=== PATIENT | male | born 1970 | race African-American/Black ===

== ENCOUNTER 2019-08-02 02:21 | Emergency (ER) | payer OTHER ==
[~2019-08-02] VITALS: Ht 167.6 cm; Wt 65.8 kg
--- NOTE | 2019-08-02 02:36 | Emergency Room Report ---
History of Present Illness General Chief Complaint: Chest Pain Source: Patient Present Illness HPI Patient is a 49-year-old male who presented after increased chest discomfort. Patient reports having some indigestion-like sensation after eating at [employer]. Patient reportedly had a recent fall. He reports having prior history of hypertension which medication controlled as well as high cholesterol. He denies any prior cardiac history. Patient had not been vomiting. He denies any current pain. He states this is relieved after taking nitroglycerin and aspirin with EMS. He denies any fever. He denies being a smoker Allergies: Coded Allergies: No Known Allergies (Unverified , 08/02/19) Patient History Past Medical History: see triage record Reviewed Nursing Documentation: PMH: Agreed; PSxH: Agreed Nursing Documentation-PMH Past Medical History: No Stated History Review of Systems All Other Systems: negative except mentioned in HPI Physical Exam Vital Signs Date Time Temp Pulse Resp B/P (MAP) Pulse Ox O2 Delivery O2 Flow Rate FiO2 08/02/19 02:22 98.4 64 16 108/68 (81) 97 Room Air Sp02 EP Interpretation: reviewed, normal General Appearance: normal inspection, well appearing, no apparent distress, alert, GCS 15 Head: atraumatic ENT: normal ENT inspection, hearing grossly normal, normal voice Neck: normal inspection, full range of motion, supple, no bony tend Respiratory: normal inspection, lungs clear, normal breath sounds, no respiratory distress, no retraction, no wheezing Cardiovascular #1: regular rate, rhythm, no edema Gastrointestinal: normal inspection, normal bowel sounds, non tender, soft, no guarding, no hernia Genitourinary: no CVA tenderness Musculoskeletal: normal inspection, back normal, normal range of motion Neurologic: normal inspection, alert, responsive, speech normal Psychiatric: normal inspection, judgement/insight normal, mood/affect normal Medical Decision Making Diagnostic Impression: Primary Impression: Chest pain Additional Impression: ACS (acute coronary syndrome) ER Course Present for chest pain. Differential diagnosis include was not limited to pneumonia, pulmonary embolism, myocardial infarction, Pneumothorax among others. Because of complexity of patient's case laboratory tests and imaging studies were ordered. Patient was noted to have prior history of hypertension as well as cholesterol. EKG interpreted by me showed normal sinus rhythm with a rate of [address] or T wave changes. Patient's T waves were noted to be somewhat peaked and concern for hyperacute T wave. Patient's initial laboratory testing showed some elevation of the CPK as well as CK-MB. Patient was given aspirin by EMS. He denies any chest discomfort at this time. Patient was offered further medical management in the hospital. Patient was advised that his laboratory testing was abnormal and he has significant risk for cardiac disease. The patient was advised risk benefits alternatives of leaving AGAINST MEDICAL ADVICE and he indicated understanding and all questions are answered patient still continued want to leave and signed AGAINST MEDICAL ADVICE. Despite risks including but not limited to disability and worsening of current lifestyle. Patient was advised to return if he changes his mind. He appears to be able to make his own decisions. Labs Test 08/02/19 02:39 White Blood Count 2.8 K/UL (4.8-10.8) Red Blood Count 5.06 M/UL (4.70-6.10) Hemoglobin 16.0 G/DL (14.2-18.0) Hematocrit 45.2 % (42.0-52.0) Mean Corpuscular Volume 89 FL (80-99) Mean Corpuscular Hemoglobin 31.7 PG (27.0-31.0) Mean Corpuscular Hemoglobin Concent 35.5 G/DL (32.0-36.0) Red Cell Distribution Width 10.7 % (11.6-14.8) Platelet Count 149 K/UL (150-450) Mean Platelet Volume 7.5 FL (6.5-10.1) Neutrophils (%) (Auto) % (45.0-75.0) Lymphocytes (%) (Auto) % (20.0-45.0) Monocytes (%) (Auto) % (1.0-10.0) Eosinophils (%) (Auto) % (0.0-3.0) Basophils (%) (Auto) % (0.0-2.0) Differential Total Cells Counted 100 Neutrophils % (Manual) 59 % (45-75) Lymphocytes % (Manual) 24 % (20-45) Monocytes % (Manual) 12 % (1-10) Eosinophils % (Manual) 3 % (0-3) Basophils % (Manual) 2 % (0-2) Band Neutrophils 0 % (0-8) Platelet Estimate Decreased Platelet Morphology Normal Red Blood Cell Morphology Normal Sodium Level 145 MMOL/L (136-145) Potassium Level 4.1 MMOL/L (3.5-5.1) Chloride Level 108 MMOL/L (98-107) Carbon Dioxide Level 31 MMOL/L (21-32) Anion Gap 7 mmol/L (5-15) Blood Urea Nitrogen 26 mg/dL (7-18) Creatinine 1.8 MG/DL (0.55-1.30) Estimat Glomerular Filtration Rate 48.8 mL/min (>60) Glucose Level 102 MG/DL (74-106) Calcium Level 8.7 MG/DL (8.5-10.1) Total Bilirubin 1.3 MG/DL (0.2-1.0) Direct Bilirubin 0.2 MG/DL (0.0-0.3) Aspartate Amino Transf (AST/SGOT) 35 U/L (15-37) Alanine Aminotransferase (ALT/SGPT) 37 U/L (12-78) Alkaline Phosphatase 57 U/L (46-116) Total Creatine Kinase 843 U/L (26-308) Creatine Kinase MB 16.4 NG/ML (0.0-3.6) Creatine Kinase MB Relative Index 1.9 Troponin I 0.012 ng/mL (0.000-0.056) Pro-B-Type Natriuretic Peptide 129 pg/mL (0-125) Total Protein 6.6 G/DL (6.4-8.2) Albumin 3.7 G/DL (3.4-5.0) Globulin 2.9 g/dL Albumin/Globulin Ratio 1.3 (1.0-2.7) Lipase 69 U/L (73-393) EKG Diagnostic Results Rate: normal Rhythm: NSR ST Segments: no acute changes Last Vital Signs Date Time Temp Pulse Resp B/P (MAP) Pulse Ox O2 Delivery O2 Flow Rate FiO2 08/02/19 02:22 98.4 64 16 108/68 (81) 97 Room Air Status: improved Disposition: AGAINST MEDICAL ADVICE Condition: Serious Mike Grier MD Aug 02, 2019 02:36
--- NOTE | 2019-08-02 02:51 | NUR ---
ED Nurse Note: pt brought in by ROXANN from [facility] c/c chest pain started this morning, pt denies sob denies n/v. pt reports pain is on the right side of chest, sharp and report pain is intermittent. pt AA&ox4, gcs=15, skin warm and dry, resp even and unlabored on RA, sinus kerry on registered nurse cardiac, 12 lead ekg done, ermd aware of pt's condition, will cont monitor.
[2019-08-02 02:54] VITALS: BP 108/68
[2019-08-02 03:02] LABS: HEMATOCRIT 45.2 % (42.0-52.0); MEAN CORPUSCULAR VOLUME 89 FL (80-99); PLATELET COUNT 149 K/UL (150-450); RED BLOOD COUNT 5.06 M/UL (4.70-6.10); RED CELL DISTRIBUTION WIDTH 10.7 % (11.6-14.8); WHITE BLOOD COUNT 2.8 K/UL (4.8-10.8)
[2019-08-02 03:12] LABS: ANION GAP 7 mmol/L (5-15); BLOOD UREA NITROGEN 26 mg/dL (7-18); CALCIUM 8.7 MG/DL (8.5-10.1); CARBON DIOXIDE 31 MMOL/L (21-32); CHLORIDE 108 MMOL/L (98-107); CREATININE 1.8 MG/DL (0.55-1.30); POTASSIUM 4.1 MMOL/L (3.5-5.1); SODIUM 145 MMOL/L (136-145)
[2019-08-02 03:27] LABS: ALANINE AMINOTRANSFERASE 37 U/L (12-78); ALBUMIN 3.7 G/DL (3.4-5.0); ALBUMIN/GLOBULIN RATIO 1.3 (1.0-2.7); ALKALINE PHOSPHATASE 57 U/L (46-116); ASPARTATE AMINO TRANSFERASE 35 U/L (15-37); BILIRUBIN,TOTAL 1.3 MG/DL (0.2-1.0); CKMB 16.4 NG/ML (0.0-3.6); CREATINE KINASE 843 U/L (26-308)
[2019-08-02 03:33] LABS: BILIRUBIN,DIRECT 0.2 MG/DL (0.0-0.3)
[2019-08-02 03:54] VITALS: BP 109/62
--- NOTE | 2019-08-02 03:58 | Diagnostic Imaging Report ---
EXAM: XR Chest, 1 View CLINICAL HISTORY: CP TECHNIQUE: Frontal view of the chest. COMPARISON: No relevant prior studies available. FINDINGS: Lungs: Unremarkable. No consolidation. Pleural space: Unremarkable. No pneumothorax. Heart: The cardiac silhouette is at the upper limits of normal in size. Mediastinum: Unremarkable. Bones/joints: Unremarkable. IMPRESSION: The cardiac silhouette is prominent. Clear lungs.
--- NOTE | 2019-08-02 04:35 | NUR ---
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
--- NOTE | 2019-08-02 04:45 | NUR ---
ED Nurse Note: pt signed the AMA form, pt iv d/c and id band removed, pt given a new shirt, a sandwich and a taxi voucher to go to pt's house. pt left w/ all belongings.
[2019-08-02 04:54] VITALS: BP 116/86
--- NOTE | 2019-08-03 15:18 | Cardiology Report ---
APPROVED REPORT EKG Measurement Heart [id number] ND [id number] Sinus bradycardia RV conduction delay Possible Left atrial enlargement Borderline ECG
== END 2019-08-02 04:59 | disposition left against medical advice (07) ==
LOC: EDBD 02:21 → EDUNIT# 02:21 → EMR 02:44
DX: I24.9 Acute ischemic heart disease, unspecified (principal); I10 Essential (primary) hypertension; E78.00 Pure hypercholesterolemia, unspecified
CPT/HCPCS: 36415; 71045; 80053; 80307; 82248; 82550; 82553; 83690; 83880; 84484; 85007; 85025; 93005; 96360; 99284